=== PATIENT | female | born 1935 | race American Indian/Alaskan Native ===

== ENCOUNTER 2017-11-22 09:08 | Day surgery (SDC) | payer MEDICARE ==
[2013-02-12 11:24] VITALS: BMI 33.5
[2017-11-22 10:30] VITALS: O2SAT 100
[2017-11-22] MEDS ORDERED: Propofol 10 mg/ml Inj (20 ML) ONE ×2 (10:47→11:35)
[2017-11-22] MEDS ORDERED: Lidocaine Hydrochloride 5 ML INJ ONE (11:06)
[2017-11-22] MEDS ORDERED: Midazolam 2 MG/2 ML VIAL ONE (11:07)
[2017-11-22 13:25] VITALS: TEMP 97.4
[2017-11-22 13:26] VITALS: RESP 21
[2017-11-22 13:27] VITALS: BP 163/87; PULSE 60
== END 2017-11-22 13:50 | disposition home or self-care (01) ==
LOC: C.ENDO 09:08
PROVIDERS: ATTEND Internal Medicine Gastroenterology
DX: Z12.11 Encounter for screening for malignant neoplasm of colon (principal); D12.5 Benign neoplasm of sigmoid colon; D17.5 Benign lipomatous neoplasm of intra-abdominal organs; K57.30 Diverticulosis of large intestine without perforation or abscess without bleeding; K64.8 Other hemorrhoids
CPT/HCPCS: 45385; 88305; J2250; J2704; J7040